=== PATIENT | female | born 1995 | race Caucasian/White ===

== ENCOUNTER 2016-03-16 04:54 | Inpatient (IN) ==
[2016-03-16] MEDS ORDERED: LEVOFLOXACIN INJ 750 MG in PREMIX 1 EACH IV STA (05:12)
[2016-03-16] MEDS ORDERED: ONDANSETRON 4 MG/2 ML VIAL IV STA (05:12)
[2016-03-16] MEDS ORDERED: PANTOPRAZOLE 40 MG VIAL IV STA (05:12)
[2016-03-16] MEDS ORDERED: METOCLOPRAMIDE 10 MG/2 ML VIAL IV STA (05:12)
--- NOTE | 2016-03-16 05:18 | Emergency Department Note ---
Arrival - Arrival ED Nursing Triage Note: REPORTS EPIGASTRIC PAIN RADIATING TO RIGHT SHOULDER WITH NAUSEA Mode of Arrival: Ambulatory Limitations: No Limitations Source: Patient, Family - History of Present Illness Onset (ago): hour(s) (patient presents 24 hours post onset of symptoms) Consistency: constant Severity: severe Severity scale (1-10): 8 Quality: aching Date of Last Menstrual Period: 02/11/2016 <Qamar Tsai - Last Filed: 03/16/16 05:14> <Roverto Holland - Last Filed: 03/16/16 11:22> - Arrival Chief Complaint: Abdominal / Flank Pain Stated Complaint: severe abdominal pain that goes up right side into Time Seen by Provider: 03/16/16 05:12 - History of Present Illness HPI Narrative: This 20-year-old white female seen March 14 in the ER presents once again with complaints of right upper quadrant pain radiating to the shoulder associated with nausea and vomiting. Patient states she has a history of gallstones which was documented on ultrasound on her last visit. Notable on the ultrasound here on the third was the absence of any evidence of active cholecystitis in association with her gallbladder disease. The patient states she was told to follow-up with a local surgeon whose office told her they could not see her without a primary care referral. Unfortunately the patient does not have a primary care physician and she returns here for persistence of symptoms. She states she was given no prescriptions although the record reports otherwise. Currently she complains of severe pain but is otherwise in no acute distress ( Qamar Tsai) Patient is 4 weeks . She was seen in the emergency department last night and underwent a gallbladder ultrasound which revealed cholelithiasis but no evidence of cholecystitis. No thickening of the gallbladder wall or pericholecystic fluid. (Roverto Holland) Allergies/Adverse Reactions: Allergies Allergy/AdvReac Type Severity Reaction Status Date / Time No Known Allergies Allergy Verified 03/14/16 20:20 Home Medications: Home Medications Medication Instructions Recorded Confirmed Type No Known Home Medications [No 03/16/16 03/16/16 History Known Home Medications] Review of System - Review of System 12 point system: reviewed and no additional remarkable complaints except as stated - Review of System Constitutional: Present: as per HPI Gastrointestinal: Present: as per HPI <Qamar Tsai - Last Filed: 03/16/16 05:14> Medical,Surgical,& Family Hx - Medical History Endocrine: History of: Thyroid Disorder Gastrointestinal: History of: GI Problems (gallstones) - Surgical History HEENT Surgeries: Surgical HX of: Tonsilectomy & Adenoidectomy - Social History Smoking Status: Never smoker Frequency of Alcohol Use: None Type of Drug Use: None <Qamar Tsai - Last Filed: 03/16/16 05:14> Exam <Qamar Tsai - Last Filed: 03/16/16 05:14> <Roverto Holland - Last Filed: 03/16/16 11:22> Physical Examination: GENERAL: Morbidly obese white female clutching an emesis bag in one hand with holding her abdomen with the other. HEENT: Normocephalic. No trauma. Moist mucous membranes. EOMI. PERRLA. NECK: Supple. No adenopathy. CARDIAC: Regular. No murmurs. Heart rate 95 CHEST: Clear to auscultation. No respiratory distress. O2 sat 98% ABDOMEN: Soft. Tender right upper quadrant with hypoactive bowel sounds. EXTREMITIES: No trauma. Normal ROM. No pedal edema. SKIN: No diaphoresis. No rash. NEURO: Alert. Physiologic exam No focal deficits. (Qamar Tsai) Vital Signs: Vital Signs Temperature 98.3 F 03/16/16 04:57 Pulse Rate 83 03/16/16 06:10 Respiratory Rate 19 03/16/16 06:10 Blood Pressure 143/90 03/16/16 06:10 O2 Sat by Pulse Oximetry 95 03/16/16 06:10 (Qamar Tsai) (Roverto Holland) Course <Qamar Tsai - Last Filed: 03/16/16 05:14> - Consultations Time: 07:00 Time: 07:53 Time: 11:21 <Roverto Holland - Last Filed: 03/16/16 11:22> Course Narrative: Care assumed from Dr. Tsai at 6 AM. (Roverto Holland) - Consultations Consultation #1: Discussed with Dr. alvarado. He will see the patient in the emergency department. (Roverto Holland) Consultation #2: Discussed with hospitalist. Patient will need to be admitted for evaluation of transaminitis which is rapidly progressing. (Roverto Holland) Consultation #3: Have discussed with Dr. Burciaga. The patient does not have HELLP syndrome. Patient needs to be admitted to medicine. Dr. Burciaga will be happy to consult on the patient. (Roverto Holland) Additional Consultation(s): Discussed with medicine once again. The patient will be admitted to their service. The time is 1125. (Roverto Holland) Results <Qamar Tsai - Last Filed: 03/16/16 05:14> - Labs CBC & BMP: 03/16/16 05:41 03/16/16 05:41 Lab Results: I have reviewed the patients labs <Roverto Holland - Last Filed: 03/16/16 11:22> - Labs Labs: Laboratory Tests 03/16/16 05:41 Sodium 145 Potassium 4.1 Chloride 108 H Carbon Dioxide 26 Anion Gap 15.1 H BUN 12 Creatinine 0.80 Glucose 101 AST 734 H ALT 526 H Alkaline Phosphatase 427 H Total Protein 6.7 Albumin 3.2 L Globulin 3.5 Albumin/Globulin Ratio 0.9 L (Roverto Holland) Disposition <Qamar Tsai - Last Filed: 03/16/16 05:14> Case discussed with: patient, patient's family Time of Disposition: 07:24 <Roverto Holland - Last Filed: 03/16/16 11:22> Clinical Impression: Transaminitis, Right upper quadrant abdominal pain, Cholelithiasis Disposition: Still a Patient Condition: Stable
[2016-03-16] MEDS ORDERED: ONDANSETRON 4 MG/2 ML VIAL ONE (05:37)
[2016-03-16] MEDS ORDERED: METOCLOPRAMIDE 10 MG/2 ML VIAL ONE (05:37)
[2016-03-16] MEDS ORDERED: LEVOFLOXACIN INJ 150 ML IV ONE (05:37)
[2016-03-16] MEDS ORDERED: PANTOPRAZOLE 40 MG VIAL IV ONE (05:37)
[2016-03-16] MEDS ORDERED: HYDROmorphone 2 MG/1 ML VIAL ONE ×2 (06:12→08:54)
[2016-03-16 06:17] LABS: Basophils % 0.6 % (0.0-0.8); Eosinophils # 0.1 10*3/uL (0.0-0.87); Hematocrit 35.2 VOL% (35.7-47.0); Hemoglobin 10.6 GM/DL (12.0-16.0); Immature Granulocytes % 0.3 %; Immature Granulocytes Absolute 0.02 #; Lymphocytes # 1.4 10*3/uL (1.4-4.0); Lymphocytes % 19.7 % (21.3-54.2); Mean Corpuscular HGB Conc 30.1 GM/DL (32-36); Mean Corpuscular Hemoglobin 23 PG (27-34); Mean Corpuscular Volume 75.5 FL (87-102); Mean Platelet Volume 10.2 FL (9.6-12.0); Monocytes # 0.5 10*3/uL (0.11-0.8); Monocytes % 7.7 % (1.7-12.7); Neutrophils # 4.8 10*3/uL (1.4-7.4); Neutrophils % 69.7 % (38.7-73.9); Platelet Count 276 10*3/uL (130-400); Red Blood Count 4.66 10*6/uL (3.8-5.5); Red Cell Distribution Width 16.4 % (9.3-17.3); White Blood Count 6.8 10*3/uL (4.5-13.71)
[2016-03-16] MEDS ORDERED: HYDROmorphone 2 MG/1 ML VIAL IV STA ×2 (06:20→09:15)
[2016-03-16 06:36] LABS: Albumin 3.2 G/DL (3.4-5.0); Bilirubin,Total 0.8 MG/DL (0.2-1.0); Calcium 8.7 MG/DL (8.5-10.1); Osmolality,Calculated 287.7 MOS/KG (273-304); Potassium 4.1 MMOL/L (3.5-5.1); Total Protein 6.7 G/DL (6.4-8.3)
--- NOTE | 2016-03-16 07:45 | General Surgery Consult Note ---
Assessment and Plan (1) Right upper quadrant abdominal pain Status: Acute Assessment and plan: This patient does have gallstones which sounds symptomatic but I believe she needs workup for her severe transaminitis that has worsened in the past 2 days. Hepatitis panel has been ordered. Certainly could be related to transaminitis although this is a little bit late for this. Regardless, with the amount of inflammation in her liver, I'll recommend holding off on any gallbladder surgery until this resolves and the underlying etiology of it comes to light. It is possible that it could be due from irritation from her gallbladder but with lack of signs of secondary cholecystitis on the ultrasound , normal WBC, and normal bilirubin I think that there is a real possibility of a second process going on her liver. I did recommend to her that she have her gallbladder removed electively but would like to wait for her remaining liver workup and transaminitis to improve. Current Visit: Yes History of Present Illness Chief complaint: abdominal pain with nausea and vomiting History of present illness: Ms. Carter is a 20 year old female who is one month from a spontaneous vaginal delivery and has been experiencing worsening right upper quadrant pain with nausea and vomiting since her delivery but is been worse and more persistent over the past week. She is here on March 14 and had a workup which showed a leukocytosis of 17,000 and a gallbladder ultrasound demonstrated stones but no wall thickening or pericholecystic fluid. She also had no bile duct dilation on the ultrasound. She was discharged home from the ER on the but came back today with persistent symptoms. Her lab work today demonstrates a premarked transaminitis with AST of over 700. Her bilirubin was normal. Her alkaline phosphatase is mildly elevated. She's had no abdominal surgeries in the past. Home Medications Medication Instructions Recorded Confirmed Type Ondansetron Odt Tab [Zofran Odt] 4 mg PO Q6H #15 tablet 03/14/16 Rx Pantoprazole Tab [Protonix Tab] 40 mg PO DAILY #14 tablet 03/14/16 Rx traMADol TAB [Ultram] 50 mg PO Q6H PRN #20 tablet 03/14/16 Rx Allergies Allergy/AdvReac Type Severity Reaction Status Date / Time No Known Allergies Allergy Verified 03/14/16 20:20 Medical,Surgical,& Family Hx - Medical History Endocrine: History of: Thyroid Disorder Gastrointestinal: History of: GI Problems (gallstones) - Surgical History HEENT Surgeries: Surgical HX of: Tonsilectomy & Adenoidectomy - Social History Smoking Status: Never smoker Frequency of Alcohol Use: None Type of Drug Use: None - Constitutional Constitutional: Present: as per HPI - EENT Nose, mouth and throat: Present: as per HPI - Cardiovascular Cardiovascular: Present: as per HPI - Respiratory Respiratory: Present: as per HPI - Gastrointestinal Gastrointestinal: Present: as per HPI, abdominal pain - Genitourinary Genitourinary: Present: as per HPI - Musculoskeletal Musculoskeletal: Present: as per HPI - Neurological Neurological: Present: as per HPI - Endocrine Endocrine: Present: as per HPI Hematologic/Lymphatic: Present: as per HPI Exam - Constitutional Vitals: Period Temp Pulse Resp BP Sys/Cole Pulse Ox Last 24 Hr 98.3 F 83-95 19-22 143-169/90-113 95-98 General appearance: no acute distress, morbidly obese - Head Head exam: Present: normal inspection, normocephalic - Eye Eye exam: Present: EOMI. Absent: scleral icterus Pupils: Present: RONEN - ENT ENT exam: Present: normal exam Mouth exam: Present: normal external inspection, normal voice - Neck Neck exam: Present: normal inspection, trachea midline - Respiratory Respiratory exam: Present: clear to auscultation bilaterally. Absent: accessory muscle use, chest wall tenderness - Cardiovascular Cardiovascular exam: Present: RRR. Absent: systolic murmur, tachycardia - GI/Abdominal GI/Abdominal exam: Present: normal bowel sounds, Green's sign, tenderness, soft. Absent: ascites, distended, rebound - Extremities Exam Extremities exam: Present: normal inspection, normal capillary refill - Back Exam Back exam: Present: normal inspection - Neurological Exam Neurological exam: Present: alert, oriented X3 Speech: Present: normal - Skin Skin exam: Present: normal color, warm Results - Labs CBC & BMP: 03/16/16 05:41 03/16/16 05:41 - Diagnostic Findings Procedure: Ultrasound: report reviewed by me Specialty Discharge - Follow Up or Referrals - Discharge Medications No Action Ondansetron Odt Tab [Zofran Odt] 4 mg PO Q6H #15 tablet Pantoprazole Tab [Protonix Tab] 40 mg PO DAILY #14 tablet traMADol TAB [Ultram] 50 mg PO Q6H PRN #20 tablet PRN Reason: Abdominal Pain
[2016-03-16 08:45] LABS: Hepatitis A Ab IgM Result Negative (Negative); Hepatitis B Core IgM Quant < 0.05 Index; Hepatitis B Core IgM Result Negative (Negative); Hepatitis B Surface Ag Quant < 0.10 Index; Hepatitis B Surface Ag Result Negative (Negative); Hepatitis C Virus Ab Quant 0.04 Index; Hepatitis C Virus Ab Result Negative (Negative)
[2016-03-16 09:19] LABS: PT Patient Result 10.1 SECS; Partial Thromboplastin Time 25.1 SECS (0-40)
[2016-03-16 10:32] LABS: Apearance,Urine CLOUDY (Clear); Bacteria,Urine Occasional /HPF (Few); Bilirubin,Urine Small mg/dL (Negative); Blood, Urine Negative (Negative); Glucose,Urine (UA) Negative (Negative); Ketones,Urine Negative (Negative); Mucus,Urine Many /LPF (Occasional); Nitrite,Urine Negative (Negative); Protein,Urine 30 MG/DL; RBC,Urine 2 /HPF (0-4); Squamous Epithelial Cell,Urine Moderate /HPF (0-10); Urine Color Amber (Yellow); Urine Specific Gravity 1.031 (1.001-1.035); WBC,Urine 5 /HPF (0-6)
[2016-03-16] MEDS ORDERED: ACETAMINOPHEN 325 MG TABLET PO PRN (11:44)
--- NOTE | 2016-03-16 12:22 | Hospitalist History & Physical ---
<Paula Galindo - Last Filed: 03/16/16 12:10> Assessment and Plan - Time spent with patient Time spent with patient: Greater than 30 minutes (due to assessment, plan and documentation.) (1) Cholelithiasis Status: Acute Assessment and plan: Gi consultation PRN pain medications clear liquid diet VTE prophylaxis abdominal ultrasound labs in AM Current Visit: Yes (2) Transaminitis Status: Acute Assessment and plan: GI has been consulted Lipase in Am. Current Visit: Yes History of Present Illness Chief complaint: RUQ abd pain History of present illness: Ms. Carter is a 20 year old morbidly obese female who presented to the ED early yesterday morning for RUQ abdominal pain. An ultrasound was performed that showed "cholelithiasis without specific features to suggest acute cholecystitis ". At that time, her AST was 97, ALT 51. Today, she presented for worsening abdominal pain. Her AST was noted to be 734, ALT 427. She is 4 weeks out from having a healthy baby girl, vaginally delivered. Dr. Patel delivered, but for insurance purposes, is now being seen by Dr. Burciaga. She is not diabetic, and does not have a history of HTN, however, she did say that she had some issues with her blood pressure during her . She complains of abdominal pain RUQ that radiates to her right shoulder. She states that at times, the pain "takes her breath away". Hepatitis panel is negative. Dr. Summers has already seen in the ED for surgical consultation. He feels that is possibly be related to transaminitis although he felt it was a little late in the timeline for that. Denies any past surgical history other than tonsilectomy and adenoidectomy. Dr. Zapata has spoken with Dr. Burciaga regarding Ms. Carter's presentation. We will admit and consult Dr. Lopez with GI, keep on a clear liquid diet. Acetominophen level was ordered and was 3.3. A urine test has also been ordered, UDS, magnesium and salicylate, along with blood cultures. CBC, lipase in Am. She will be on NS @ 125 cc/hr, and was previously given levaquin in the ED. She is agreeable to this plan of care and we will continue to follow along with GI. Further plan and addendum to follow by Dr. Char Zapata. Home Medications Medication Instructions Recorded Confirmed Type No Known Home Medications [No 03/16/16 03/16/16 History Known Home Medications] Allergies Allergy/AdvReac Type Severity Reaction Status Date / Time No Known Allergies Allergy Verified 03/14/16 20:20 Medical,Surgical,& Family Hx - Medical History Endocrine: History of: Thyroid Disorder Gastrointestinal: History of: GI Problems (gallstones) - Surgical History HEENT Surgeries: Surgical HX of: Tonsilectomy & Adenoidectomy - Social History Smoking Status: Never smoker Frequency of Alcohol Use: None Type of Drug Use: None Marital Status: Lives With:: Spouse Functional capacity: independent ambulation - Constitutional Constitutional: Absent: chills, fever(s), weakness - EENT Eyes: Absent: blurry vision, diplopia Ears: Absent: decreased hearing, tinnitus Nose, mouth and throat: Absent: dysphagia, headache(s) - Cardiovascular Cardiovascular: Present: chest pain at rest (that radiates from her mid- abdomen. ). Absent: edema - Respiratory Respiratory: Absent: cough, hemoptysis - Gastrointestinal Gastrointestinal: Present: abdominal pain, nausea, vomiting. Absent: melena - Genitourinary Genitourinary: Absent: dysuria, flank pain, hematuria - Musculoskeletal Musculoskeletal: Absent: arthralgias, joint swelling - Neurological Neurological: Absent: confusion, dizziness - Psychiatric Psychiatric: Absent: anxiety, confusion, depression - Endocrine Endocrine: Absent: cold intolerance, heat intolerance - Hematologic/Lymphatic Hematologic/Lymphatic: Absent: easy bleeding, easy bruising Exam - Constitutional Vitals: Period Temp Pulse Resp BP Sys/Cole Pulse Ox Last 24 Hr 98.3 F 83-95 19-22 143-169/90-113 95-98 General appearance: no acute distress, morbidly obese - Head Head exam: Present: normal inspection, normocephalic - Eye Eye exam: Present: EOMI. Absent: scleral icterus Pupils: Present: RONEN, normal accommodation - ENT ENT exam: Present: normal exam, normal oropharynx - Neck Neck exam: Present: normal inspection. Absent: lymphadenopathy - Respiratory Respiratory exam: Present: clear to auscultation bilaterally. Absent: accessory muscle use - Cardiovascular Cardiovascular exam: Present: regular rate and rhythm. Absent: carotid bruit - GI/Abdominal GI/Abdominal exam: Present: normal bowel sounds. Absent: tenderness - Extremities Exam Extremities exam: Present: normal inspection. Absent: edema - Back Exam Back exam: Present: normal inspection. Absent: muscle spasm - Neurological Exam Neurological exam: Present: alert, oriented X3 - Psychiatric Psychiatric exam: Present: normal affect, normal mood - Skin Skin exam: Present: normal color, warm, dry, intact Results - Labs CBC & BMP: 03/16/16 05:41 03/16/16 05:41 Lab Results: I have reviewed the past 24 hour labs <BennyChar Declan - Last Filed: 03/16/16 14:11> Assessment and Plan (1) Cholelithiasis Status: Acute Assessment and plan: ercp in am Current Visit: Yes (2) Right upper quadrant abdominal pain Status: Acute Assessment and plan: Positive green sign, abx, ercp in am Current Visit: Yes (3) Transaminitis Status: Acute Assessment and plan: ercp in am, still suspcious that GB needs to be removed. Current Visit: Yes (4) Headache Status: Acute Assessment and plan: blood patch, evaluation for sleep apnea Current Visit: Yes (5) UTI (urinary tract infection) Status: Acute Assessment and plan: unsyn IV Current Visit: Yes History of Present Illness History of present illness: Patient seen and examined. Hospital course reviewed and edited. Spoke with Dr. Lopez regarding his plan. He plans to do an ERCP tomorrow. Repeat gallbladder ultrasound showed extensive gallstones. And she was extremely tender consistent with Green sign. Patient does have evidence of fatty liver. She also spoke of having headaches ever since she had her eipdural. I will call anesthesia to do a blood patch. I will also have Dr. Balderas see her as I believe she has sleep apnea. Urine drug screen does show marijuana and opiates. Urine test is negative. Medical,Surgical,& Family Hx - Surgical History Additional Surgical History: vaginal delivery - Family History Family History: Reports;: Family Diabetes Denies;: Family Heart Disease - EENT Nose, mouth and throat: Absent: sore throat - Cardiovascular Cardiovascular: Absent: dyspnea, dyspnea on exertion - Respiratory Respiratory: Absent: dyspnea, dyspnea on exertion - Gastrointestinal Gastrointestinal: Absent: constipation, diarrhea - Neurological Neurological: Present: headache(s) Exam - Constitutional Vitals: Period Temp Pulse Resp BP Sys/Cole Pulse Ox Last 24 Hr 97.5 F 71-89 17-20 106-115/65-69 95-98 - Neck Neck exam: Absent: thyromegaly - Cardiovascular Cardiovascular exam: Absent: systolic murmur - GI/Abdominal GI/Abdominal exam: Present: tenderness (RUQ) - Neurological Exam Neurological exam: Present: CN II-XII intact, reflexes normal. Absent: motor sensory deficit Results - Labs CBC & BMP: 03/16/16 05:41 03/16/16 05:41 - Diagnostic Findings Procedure: Ultrasound: report reviewed by me (extensive stones, fatty liver)
[2016-03-16 12:33] LABS: Barbiturates Screen,Urine Negative (Negative); Benzodiazepines Screen,Urine Negative (Negative); Cannabinoid Screen,Urine Positive (Negative); Opiate Screen,Urine Positive (Negative); Phencyclidine Screen,Urine Negative (Negative)
--- NOTE | 2016-03-16 13:41 | Gastrointestinal Consult Note ---
<Shawanda Manzano - Last Filed: 03/16/16 13:23> Assessment and Plan (1) Transaminitis Status: Acute Assessment and plan: 03/16-Findings of elevated LFTs that were essentially stable two days prior with continued RUQ pain and N/V following ingestion of meals. Normal , 4 weeks with no prior history. Obtain abd US with portal vein dopplers , MARCELA. Plan for ERCP tomorrow due to findings of gallstones on US. Plan and addendum to follow by DR Lopez. Current Visit: Yes (2) Right upper quadrant abdominal pain Status: Acute Assessment and plan: 03/16-Onset of RUQ with N/V, initially starting during and worsening over last several weeks since delivery. Findings on US of gallstones, normal CBD two days ago in ER. LFTs now elevated and repeat US ordered with portal vein dopplers. Plan for ERCP tomorrow to further evaluate. Plan and addendum to follow by DR loepz. Current Visit: Yes History of Present Illness Chief complaint: Abd pain, N/V History of present illness: Ms. Carter is a 20 year old female who presented to the ER today with epigastric pain, nausea and vomiting. Pt is 4 weeks following a normal vaginal delivery and a reported uncomplicated . She states while she was she had the epigastric/RUQ abdominal pain with nausea and was told it was "probably my gallbladder". She states since delivery, she has continued to have this pain however it has become more severe the last several days. She presented to the ER on 03/14 with this pain and underwent an US which at that time was noted to have gallstones, with normal CBD and no cholecystits. Her AST was mildly elevated at 97 and alk phos 244 with remained of LFT unremarkable. She was discharged home with appt to see Dr Combs. Pt presented back to the ER today with the same symptoms. She states that the pain has become more frequent and severe and occurs every time she eats. She has had nausea and vomiting as well. Denies any hematemesis or coffee ground emesis. She denies any fever or chills. She now presents with elevated LFT today with AST 734, ALT 526, Alk phose 427. Hepatitis panel is negative. WBC 6.8. Tylenol level normal, positive for THC on drug screen. Home Medications Medication Instructions Recorded Confirmed Type No Known Home Medications [No 03/16/16 03/16/16 History Known Home Medications] Allergies Allergy/AdvReac Type Severity Reaction Status Date / Time No Known Allergies Allergy Verified 03/14/16 20:20 Medical,Surgical,& Family Hx - Medical History Endocrine: History of: Thyroid Disorder Gastrointestinal: History of: GI Problems (gallstones) - Surgical History HEENT Surgeries: Surgical HX of: Tonsilectomy & Adenoidectomy - Social History Smoking Status: Never smoker Frequency of Alcohol Use: None Type of Drug Use: None 12 point system: reviewed and no additional remarkable complaints except as stated - Constitutional Constitutional: Present: as per HPI - EENT Eyes: Present: as per HPI Ears: Present: as per HPI Nose, mouth and throat: Present: as per HPI - Cardiovascular Cardiovascular: Present: as per HPI - Respiratory Respiratory: Present: as per HPI - Gastrointestinal Gastrointestinal: Present: as per HPI, abdominal pain, nausea, vomiting - Genitourinary Genitourinary: Present: as per HPI - Musculoskeletal Musculoskeletal: Present: as per HPI - Neurological Neurological: Present: as per HPI - Psychiatric Psychiatric: Present: as per HPI - Endocrine Endocrine: Present: as per HPI - Hematologic/Lymphatic Hematologic/Lymphatic: Present: as per HPI Exam - Constitutional Vitals: Period Temp Pulse Resp BP Sys/Cole Pulse Ox Last 24 Hr 97.5 F 71-89 17-20 106-115/65-69 95-98 General appearance: no acute distress, over weight - Head Head exam: Present: normal inspection, normocephalic - Eye Eye exam: Present: other (lids and conjunctiva unremarkable). Absent: scleral icterus - ENT ENT exam: Present: normal exam - Neck Neck exam: Present: normal inspection - Respiratory Respiratory exam: Present: clear to auscultation bilaterally. Absent: rales, rhonchi, wheezes - Cardiovascular Cardiovascular exam: Present: regular rate and rhythm. Absent: diastolic murmur , JVD, systolic murmur - GI/Abdominal GI/Abdominal exam: Present: normal bowel sounds, tenderness, soft. Absent: ascites, distended, mass, organomegaly - Extremities Exam Extremities exam: Present: normal inspection, full ROM - Back Exam Back exam: Present: normal inspection - Neurological Exam Neurological exam: Present: alert, oriented X3 - Psychiatric Psychiatric exam: Present: normal affect, normal mood - Skin Skin exam: Present: normal color, warm, dry Results - Labs CBC & BMP: 03/16/16 05:41 03/16/16 05:41 Lab Results: I have reviewed the past 24 hour labs - Diagnostic Findings Procedure: Ultrasound: report reviewed by me Specialty Discharge - Follow Up or Referrals - Discharge Medications No Action No Known Home Medications [No Known Home Medications] <Jose Lopez - Last Filed: 03/16/16 18:02> History of Present Illness History of present illness: Ms. Carter is a 20 year old female Exam - Constitutional Vitals: Period Temp Pulse Resp BP Sys/Cole Pulse Ox Last 24 Hr 96.9 F-97.5 F 71-89 17-20 106-128/58-69 95-98 Results - Labs CBC & BMP: 03/16/16 05:41 03/16/16 05:41
[2016-03-16] MEDS ORDERED: PNEUMOCOCCAL VACCINE (23 VALENT) 0.5 ML VIAL IM ONE (14:00)
[2016-03-16] MEDS: SODIUM CHLORIDE 0.45% 1,000 ML IV SCH ×2 (14:09→23:17)
[2016-03-16] MEDS: ONDANSETRON 4 MG/2 ML VIAL IV PRN (14:10)
[2016-03-16] MEDS: MORPHINE 2 MG/1 ML SYRINGE IV PRN ×2 (14:11→17:49)
[2016-03-16] MEDS: AMPICILLIN/SULBACTAM 3,000 MG in SODIUM CHLORIDE 0.9% 100 ML IV SCH ×2 (15:46→21:27)
--- NOTE | 2016-03-16 18:57 | Ultrasound Report ---
US abd doppler limited Indication: Elevated liver function studies. Comparison: None. Technique: Using transcutaneous probe, ultrasound imaging of the abdomen was performed. Ultrasound images were captured and stored. Interrogated structures include the liver, gallbladder, spleen, pancreas, right kidney, left kidney, aorta, and inferior vena cava. Additionally, Doppler study is performed with capture and and stored images of the portal vein, hepatic vein, and hepatic artery. Findings: Visualized portion of the pancreatic head as well as the small portion of the pancreatic body visualized are unremarkable. Images submitted of the liver demonstrate no evidence of focal hepatic mass. The right hepatic lobe as measured in the mid hepatic line is approximate 17 cm in craniocaudal dimension. Echotexture the liver is isoechoic to the right renal cortex. Interrogation of the hepatic and portal veins demonstrate presence of color flow as well as the correct direction of spectral flow within the hepatic veins sampled. Hepatic veins demonstrate a [id number] degree of cardiac phasicity. The portal vein demonstrates minimal variability in antegrade hepatofugal flow. There is minimal phasicity of waveform noted. Velocities within the portal vein are approximately 16-18 cm/s. Images of the hepatic artery demonstrate moderate spectral broadening with monophasic low resistance arterial waveform demonstrating a peak diastolic velocity of approximately 5 cm/s. Common bile duct is normal in size to minimally enlarged measuring 5.3 mm. The gallbladder demonstrates layering stones and/or sludge with evidence of borderline to minimal wall thickening. Gallbladder wall measures up to 3 mm. No pericholecystic fluid is present. Right kidney measures 11.7 cm in craniocaudal dimension. Aorta and inferior vena cava as well as images of the left kidney not included on study. Impression: 1. Hepatic artery demonstrates lower systems waveform. Resistive index was not calculated end systolic peaks are not well visualized on the provided spectral tracing. 2. Fairly normal appearance of hepatofugal flow is noted on spectral images obtained from the portal vein. 3. Hepatic veins demonstrate fairly normal pattern of phasicity. 4. Cholelithiasis is demonstrated. Additionally wall thickening is borderline. In the correct clinical scenario this could reflect evidence of acute cholecystitis. 5. Borderline to minimal enlargement of common bile duct is present of uncertain significance. 03/16/2016 6:39 PM PROCEDURE INTERPRETED AT [facility] DEPARTMENT OF RADIOLOGY Final Report Signed by: Dr. Claudy Killian
[2016-03-17] MEDS: AMPICILLIN/SULBACTAM 3,000 MG in SODIUM CHLORIDE 0.9% 100 ML IV SCH ×4 (02:30→21:38)
[2016-03-17 07:13] LABS: PT Patient Result 10.4 SECS
[2016-03-17 07:29] LABS: Albumin 2.7 G/DL (3.4-5.0); Bilirubin,Total 0.7 MG/DL (0.2-1.0); Calcium 8.2 MG/DL (8.5-10.1); Osmolality,Calculated 282.8 MOS/KG (273-304); Potassium 4.3 MMOL/L (3.5-5.1); Total Protein 5.7 G/DL (6.4-8.3)
[2016-03-17 07:40] LABS: Basophils % 0.4 % (0.0-0.8); Eosinophils # 0.3 10*3/uL (0.0-0.87); Eosinophils % 4.4 % (0.00-10.9); Hematocrit 35.8 VOL% (35.7-47.0); Hemoglobin 10.7 GM/DL (12.0-16.0); Immature Granulocytes % 0.3 %; Immature Granulocytes Absolute 0.02 #; Lymphocytes # 2.5 10*3/uL (1.4-4.0); Lymphocytes % 34.2 % (21.3-54.2); Mean Corpuscular HGB Conc 29.9 GM/DL (32-36); Mean Corpuscular Hemoglobin 23 PG (27-34); Mean Corpuscular Volume 76.2 FL (87-102); Monocytes # 0.4 10*3/uL (0.11-0.8); Monocytes % 5.3 % (1.7-12.7); Neutrophils # 4.1 10*3/uL (1.4-7.4); Neutrophils % 55.4 % (38.7-73.9); Platelet Count 248 10*3/uL (130-400); Red Cell Distribution Width 16.4 % (9.3-17.3); White Blood Count 7.3 10*3/uL (4.5-13.71)
[2016-03-17] MEDS ORDERED: cefTRIAXone 1,000 MG in SODIUM CHLORIDE 0.9% 100 ML IV SCH (09:00)
--- NOTE | 2016-03-17 10:53 | General Surgery Progress Note ---
Assessment and Plan (1) Right upper quadrant abdominal pain Status: Acute Assessment and plan: The patient has been seen in consultation by gastroenterology with plans for ERCP today initially written in the notes. She does feel little bit better today. I will await the completion of her workup and see what this all reveals but with her transaminitis coming down so quickly certainly is possible that this could've BEEN irritation due to cholecystitis. In addition, she did have some borderline wall thickness on her duplex ultrasound of her liver. I'll continue to follow her. I will tentatively plan on doing surgery on Sunday if everything else is in order. Current Visit: Yes Subjective Patient reports: Present: no new complaints, feels better, still having pain, pain is less, afebrile. Absent: nausea, vomiting Narrative: Duplex ultrasound of the liver now demonstrates some wall thickening in the gallbladder and a borderline common bile duct. Her transaminitis is resolving and her bilirubin is normal. She still has an elevated alkaline phosphatase. Exam - Constitutional Vitals: Period Temp Pulse Resp BP Sys/Cole Pulse Ox Last 24 Hr 96.3 F-98.5 F 67-98 17-20 101-149/55-86 95-98 General appearance: no acute distress, morbidly obese - Head Head exam: Present: normal inspection, normocephalic - Eye Eye exam: Present: EOMI Pupils: Present: RONEN - ENT ENT exam: Present: normal exam Mouth exam: Present: normal external inspection, normal voice - Neck Neck exam: Present: normal inspection, trachea midline - Respiratory Respiratory exam: Present: clear to auscultation bilaterally. Absent: accessory muscle use, chest wall tenderness - Cardiovascular Cardiovascular exam: Present: RRR. Absent: systolic murmur, tachycardia - GI/Abdominal GI/Abdominal exam: Present: tenderness, soft. Absent: Green's sign, rebound - Extremities Exam Extremities exam: Present: normal inspection, normal capillary refill - Back Exam Back exam: Present: normal inspection - Neurological Exam Neurological exam: Present: alert, oriented X3 Speech: Present: normal - Skin Skin exam: Present: normal color, warm Results - Labs CBC & BMP: 03/17/16 06:12 03/17/16 06:12 - Diagnostic Findings Procedure: Ultrasound: report reviewed by me Specialty Discharge - Follow Up or Referrals - Discharge Medications No Action No Known Home Medications [No Known Home Medications]
--- NOTE | 2016-03-17 11:42 | Hospitalist Progress Note ---
Assessment and Plan (1) Cholelithiasis Status: Acute Assessment and plan: ercp today and lap stella on Sunday. Current Visit: Yes (2) Transaminitis Status: Acute Assessment and plan: Liver enzymes are better today. Current Visit: Yes (3) Headache Status: Acute Assessment and plan: blood patch, evaluation for sleep apnea Current Visit: Yes (4) UTI (urinary tract infection) Status: Acute Assessment and plan: unsyn IV Current Visit: Yes Hospitalist: Subjective Interval history: Patient going for an ERCP today. Dr. Summers will be taken out her gallbladder on Sunday Exam - Constitutional Exam: Heart Rate-[RRR] Lungs-[CTAB] GI-[+bs soft, tender RUQ] Ext-[no edema] neuro alert and oriented times 3, motor 5/5 psych normal mood and affect Results - Labs CBC & BMP: 03/17/16 06:12 03/17/16 06:12 Lab Results: I have reviewed the past 24 hour labs Labs: Blood cultures 2 negative - Diagnostic Findings Procedure: Ultrasound: report reviewed by me (Pao lithiasis demonstrated and minimal enlargement of the common bile duct is present) Specialty Discharge - Follow Up or Referrals - Discharge Medications No Action No Known Home Medications [No Known Home Medications]
[2016-03-17] MEDS ORDERED: fentaNYL 100 MCG/2 ML VIAL ONE ×2 (12:10→12:31)
[2016-03-17] MEDS ORDERED: MIDAZOLAM 2 MG/2 ML VIAL ONE (12:10)
--- NOTE | 2016-03-17 12:42 | History and Physical Update ---
History and Physical Update - Physical Exam Mental Status: alert and oriented Heart: regular rate and rhythm Lung: clear to auscultation Abdomen: within normal limits Vitals: within normal limits
--- NOTE | 2016-03-17 12:45 | Operative Note ---
Date of procedure: 03/17/16 Pre-op diagnosis: suspected choledocholithiasis Procedure: Endoscopic retrograde cholangiopancreatography with sphincterotomy and balloon stone extraction 20-year-old female with known cholelithiasis now with suspected choledocholithiasis with abnormal liver test dilated biliary tree for ERCP to further evaluate. Informed percent was obtained from the patient. She was sedated with general anesthesia per anesthesia protocol. Patient was placed in the prone position the Olympus duodenal scope was inserted under direct vision through the normal-appearing esophagus stomach pylorus to the level of a normal-appearing ampulla which does have a little bit of edematous characteristics suggestive of possible stone passage. The biliary tree was cannulated with a sphincterotome revealing a mildly dilated common bile duct common hepatic duct with question of refractory debris in the distal bile duct. Intrahepatic ducts appear normal. Cystic duct was patent and multiple cholelithiasis was identified. It was elected to proceed with sphincterotomy and subsequently an 8 mm sphincterotomy was performed without difficulty. A wire had been placed endoscopically and utilizing this the balloon catheter was advanced the level kat hepatis inflated 8 mm and brought in the duodenum. A small amount of sludge-type debris was noted to pass. Repeat balloon sweeping with 10 mm balloon revealed no residual stone fragments. Good hemostasis was noted. The procedure was terminated patient our procedure well she's discharge recovery in good condition. Postop diagnosis: #1 choledocholithiasis now status post successful sphincterotomy and balloon extraction #2 cholelithiasis will need cholecystectomy. #3 abnormal liver tests likely secondary to choledocholithiasis we'll continue to observe and expect these to improved. Her baseline liver test are unknown and certainly she is at high risk for some component of steatohepatitis Anesthesia: KURTIS Surgeon / Physician: Jose Lopez Estimated blood loss: none Specimens: none sent Condition: stable Disposition: post procedure unit Results - Labs CBC & BMP: 03/17/16 06:12 03/17/16 06:12 Discharge Plan - Discharge Medications No Action No Known Home Medications [No Known Home Medications] - Follow Up or Referral - Forms/Instructions
[2016-03-17] MEDS ORDERED: GLUCAGON 1 MG VIAL ONE (12:59)
--- NOTE | 2016-03-17 13:07 | Anesthesia ---
Anesthesia Post OP - Post Ansesthetic Evaluation Patient seen in post op: Yes Resp: within normal limits CV: within normal limits Mental: within normal limits Temp: within normal limits [id number]: within normal limits Nausea and Vomiting: within normal limits Pain: within normal limits
[2016-03-17] MEDS ORDERED: ONDANSETRON 4 MG/2 ML VIAL ONE (13:09)
[2016-03-17] MEDS: ONDANSETRON 4 MG/2 ML VIAL IV PRN (13:15)
--- NOTE | 2016-03-17 13:31 | Sleep Medicine Consult ---
Assessment and Plan (1) Unspecified sleep apnea Status: Acute Assessment and plan: Her history does not suggest high likelihood of sleep apnea and I do not think sleep apnea is contributing to her headaches. I think her headaches are more related to her state and if she is not had CT of the brain, I would recommend CT to be done. She has not had thyroid function studies done and I would also make sure that TSH is at least done to exclude hypothyroidism. It is certainly possible that just her epidural was contributing to her headaches but this seems to be quite a prolonged period of time to be contributing to this. Post epidural headaches usually resolve by 15 days without treatment. At this point I think is safe to hold off on further sleep evaluation but I will check back with her on Sunday and see how she's doing. Current Visit: Yes History of Present Illness Chief complaint: headache History of present illness: Ms. Carter is a 20 year old female status post recent delivery of baby about 1 month ago. She has had problems with a headache since 3 days after delivery. She had an epidural. Her headache lasts all day and is unremitting. She did not have her headache prior to her epidural or delivery of her baby. She does have a history of snoring but on discussion with her , she has no trouble with her breathing at all during her sleep. He is never her to stop breathing and does not describe her snoring as loud or disruptive. The patient states that she usually feels rested and had no issues with fatigue or sleepiness up until the delivery of her baby. She states that with her young child, she's having more problems with fatigue and sleepiness. She denies any issues with restlessness of her legs or leg jerks. Her denies that she kicks her jerks her legs during sleep. Her and her mother both deny any problems with daytime fatigue or sleepiness. She is being evaluated for upper abdominal pain, nausea, and abnormal LFTs. She is status post ERCP. Home Medications Medication Instructions Recorded Confirmed Type No Known Home Medications [No 03/16/16 03/16/16 History Known Home Medications] Allergies Allergy/AdvReac Type Severity Reaction Status Date / Time No Known Allergies Allergy Verified 03/14/16 20:20 Review of systems: Patient's weight is down to her prepregnancy weight. She has not had issues with swelling proceeding her or since. Exam (Pulmonay) H&P - Constitutional Vitals: Period Temp Pulse Resp BP Sys/Cole Pulse Ox Last 24 Hr 72-97 16-19 103-120/56-80 95-98 Exam: She is alert and responsive in no acute distress. Pupils equal round reactive to light and accommodation. Extraocular movements intact. Oropharynx with class II Mallampati exam. Neck is supple without adenopathy or thyromegaly. No supraclavicular adenopathy is noted. Chest with symmetrical breath sounds without focal wheezes rhonchi or rales. Cardiac exam reveals a regular rhythm without murmur or gallop. Abdomen soft, obese, without overt tenderness present. Extremities are without clubbing cyanosis or edema. Neurologically, grossly intact. She moves all extremities with good strength. 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, borderline issues.) Endocrine: History of: Thyroid Disorder Gastrointestinal: History of: GI Problems (gallstones) Reproductive: History of: Complication (1 miscarriage, hypothyroidism during ) - Surgical History Neurologic Surgeries: Patient denies: Neurologic Surgery HEENT Surgeries: Surgical HX of: Tonsilectomy & Adenoidectomy Abdominal Surgeries: Patient denies: Abdominal Surgery Reproductive Surgeries: Patient denies;: Genitourinary Surgery, Gynecologic Surgery - Family History Family History: Reports;: Family Cancer (maternal great grandparents), Family Diabetes, Family Hypertension (father, maternal grandfather and maternal aunt), Family Psychiatric Problems (brother-ADD, ADHD, seizures, maternal aunt with issues), Family Stroke (both maternal great grandparents) Denies;: Family Anesthesia Reaction, Family Heart Disease, Family Hematology , Additional Family History - Social History Smoking Status: Never smoker Frequency of Alcohol Use: None Type of Drug Use: None Results - Labs CBC & BMP: 03/17/16 06:12 03/17/16 06:12 Lab Results: I have reviewed the past 24 hour labs Specialty Discharge - Follow Up or Referrals - Discharge Medications No Action No Known Home Medications [No Known Home Medications]
[2016-03-17] MEDS: MORPHINE 2 MG/1 ML SYRINGE IV PRN ×2 (13:59→23:36)
--- NOTE | 2016-03-17 14:42 | Fluoroscopy Report ---
[place] ERCP w sphincterotomy Clinical Information: \S\elevated LFT, gallstones Total fluoroscopy time: 30SEC Operating physician: Moose Lopez Comparison: None Findings: Intraoperative fluoroscopy during ERCP was performed. No significant residual filling defects or abnormal focal stricture is visualized within the common bile duct. Multiple filling defects are noted within the gallbladder consistent with a history of cholelithiasis. Sphincterotomy was performed. Sweeping of the debris from the common bile duct was also reported. Impression: Intraoperative fluoroscopy as detailed above. PROCEDURE INTERPRETED AT [facility] DEPARTMENT OF RADIOLOGY Final Report Signed by: Ovidio Rosario
--- NOTE | 2016-03-17 16:21 | CT Report ---
History: Headache Date: 03/17/2016 Study: CT head without contrast Comparison exam: No previous similar study available Transaxial CT sections were obtained through the head without IV contrast. Total DLP measures 970.1 mGy*cm. The ventricles are midline in position without evidence of hydrocephalus. There is no mass or parenchymal hemorrhage. There is no gross CT evidence of acute cortical stroke. There is no extra-axial hematoma. The partially visualized paranasal sinuses and mastoid air cells are clear. There is no acute abnormality of the calvarium. Impression: No acute intracranial process PROCEDURE INTERPRETED AT [facility] [place] DEPARTMENT OF RADIOLOGY Final Report Signed by: Dr. Bethany Ruiz
[2016-03-18] MEDS: AMPICILLIN/SULBACTAM 3,000 MG in SODIUM CHLORIDE 0.9% 100 ML IV SCH ×3 (03:05→17:11)
[2016-03-18] MEDS: SODIUM CHLORIDE 0.45% 1,000 ML IV SCH ×3 (03:54→17:11)
--- NOTE | 2016-03-18 08:57 | Anesthesia ---
Anesthesia Procedures - Epidural Position: sitting position (Epidural Blood patch. Sitting position. Chloraprep. Skin wheal 1% lidocain. 18 Ga Tuohy needle. +KEKE to air. 10 ml blood drawn in sterile fashion by RN. 10 ml blood injected into epidural space. Tolerated well. Pt. had no sedation per her request.)
--- NOTE | 2016-03-18 08:59 | Anesthesia ---
Anesthesia Post OP - Post Ansesthetic Evaluation Patient seen in post op: Yes Resp: within normal limits CV: within normal limits Mental: within normal limits Temp: within normal limits [id number]: within normal limits Nausea and Vomiting: within normal limits Pain: within normal limits Patient seen at: date, time
--- NOTE | 2016-03-18 11:01 | Event Note ---
03/18/2016. Patient apparently has some gallbladder changes and docked to look is considering whether to do cholecystectomy. Stable at this time.
--- NOTE | 2016-03-18 14:06 | Gastrointestinal Progress Note ---
Assessment and Plan - Time spent with patient Time spent with patient: Greater than 30 minutes (1) Choledocholithiasis Status: Acute Current Visit: Yes (2) Other specified counseling Status: Acute Current Visit: Yes Exam (Progress Note) - Constitutional Vitals: Period Temp Pulse Resp BP Sys/Cole Pulse Ox Last 24 Hr 96.2 F-99.0 F 58-89 16-20 99-133/52-74 94-98 Results - Labs CBC & BMP: 03/17/16 06:12 03/17/16 06:12 Specialty Discharge - Follow Up or Referrals - Discharge Medications No Action No Known Home Medications [No Known Home Medications] Note Addendum: PLEASE NOTE -- automatic citation of patient information is unavoidable in this electronic note. I have made a reasonable effort to review the information cited , but it is not a part of my evaluation, impression, or recommendation unless specifically discussed in the dictated text that follows. As well, voice recognition software was used in the creation of this clinical note. Reasonable effort was made to identify and correct gross errors. Despite proofreading, errors in asphalt paving supervisor may be present, including nonsense verbiage at times. If you encounter such an error, please contact me at for discussion and correction. -- Jonnie Chief complaint: biliary disease Subjective: the patient is a 20-year-old female seen for follow-up of choledocholithiasis. The patient was admitted to days ago with elevated liver associated enzymes and evidence of cholecystitis. She underwent ERCP with sphincterotomy and bullying extraction of a choledocholith yesterday. She has started taking a diet and is tolerating that. Liver associated enzymes have trended down well. She reports continued abdominal pain but appears comfortable. Medications: Tylenol, Augmentin, Zofran, 1/2NS infusion, morphine Review of Symptoms: 12 point review of symptoms was negative except as noted above Physical examination: Vital Signs: Current vital signs reviewed. General Appearance: well-appearing. Not acutely ill. Head: Normocephalic. Eyes: no scleral icterus. No scleral injection. No conjunctival pallor. Oral Cavity: Odor of breath was normal. No drooling was observed. Lips showed no abnormalities. Lungs: Respiration rhythm and depth was normal. Cardiovascular: Heart rate and rhythm were normal. Abdomen: abdomen was not distended. Ascites was not discovered. Abdominal palpation revealed mild diffuse tenderness and no hepatosplenomegaly. Musculoskeletal System: musculoskeletal system was grossly normal. Neurological: level of consciousness was normal. Speech was normal. No coordination/cerebellum abnormalities were noted. Skin: Gen. appearance was normal. Color and pigmentation were normal. No skin lesions were appreciated. Laboratory: white blood count 7.3, hemoglobin 10.7, hematocrit 35.8, platelets 248, INR 1.0, PT 10.4, ALT 355, AST 207, total bilirubin 0.7, alkaline phosphatase 338, total protein 5.7, albumin 2.7 Radiology: reviewed with no pertinent changes noted. Impressions: 1. Choledocholithiasis -- the patient is status post sphincterotomy with clearance of the duct. I recommend continued monitoring of liver associated enzymes to normal. I agree with the tentative surgical plan for cholecystectomy during this admission. 2. Patient Counseling: Medical Management: Patient seen for greater than 30 minutes. Greater than 50% of this time was spent counseling regarding differential diagnosis, likely diagnosis,, diagnostic and therapeutic options, risks, benefits, and alternatives to procedures and medications, informed consent, and plan of care generally. Patient has expressed understanding and wishes to proceed. Recommendations: -- continue supportive care -- continue antibiotics -- monitor liver associated enzymes -- cholecystectomy during this admission -- we will continue to follow with you
[2016-03-18] MEDS: AMPICILLIN 500 MG CAPSULE PO SCH (20:52)
[2016-03-19] MEDS: MORPHINE 2 MG/1 ML SYRINGE IV PRN ×3 (00:56→18:32)
--- NOTE | 2016-03-19 08:09 | Event Note ---
03/19/2016 Patient without significant discomfort but continues to go out and smoke. Patient scheduled for cholecystectomy tomorrow and we will make her nothing by mouth after midnight.
--- NOTE | 2016-03-19 09:08 | Gastrointestinal Progress Note ---
Assessment and Plan (1) Choledocholithiasis Status: Acute Current Visit: Yes (2) Other specified counseling Status: Acute Current Visit: Yes Exam (Progress Note) - Constitutional Vitals: Period Temp Pulse Resp BP Sys/Cole Pulse Ox Last 24 Hr 97.2 F-98.0 F 77-96 16-20 114-138/55-83 94-97 Results - Labs CBC & BMP: 03/17/16 06:12 03/17/16 06:12 Specialty Discharge - Follow Up or Referrals - Discharge Medications No Action No Known Home Medications [No Known Home Medications] Note Addendum: I have reviewed this patient's record with tentative diagnoses as documented. I visited the patient's room and found that she was off the floor. I contacted the nursing staff who reports that she regularly leaves the floor to smoke. Please call with any further needs today. Dr. Lopez will resume GI care for this patient tomorrow.
[2016-03-19] MEDS: AMPICILLIN 500 MG CAPSULE PO SCH ×4 (09:33→22:30)
[2016-03-20] MEDS ORDERED: LIDOCAINE 1%/EPI INJ 20 ML VIAL ONE (06:45)
[2016-03-20] MEDS ORDERED: TISSUE ADHESIVE 1 EACH APPLICATOR TOP ONE (06:45)
[2016-03-20] MEDS ORDERED: LIDOCAINE 100 MG/5 ML SYRINGE ONE (07:06)
[2016-03-20] MEDS ORDERED: PROPOFOL 200 MG/20 ML VIAL IV ONE (07:06)
[2016-03-20] MEDS ORDERED: ONDANSETRON 4 MG/2 ML VIAL ONE ×2 (07:06→08:48)
[2016-03-20] MEDS ORDERED: KETOROLAC 30 MG/1 ML VIAL ONE (07:06)
[2016-03-20] MEDS ORDERED: ceFAZolin 1,000 MG VIAL ONE (07:09)
[2016-03-20] MEDS ORDERED: LACTATED RINGERS 1,000 ML IV SCH ×2 (07:30→08:00)
--- NOTE | 2016-03-20 08:22 | Operative Note ---
Date of procedure: 03/20/16 Pre-op diagnosis: acute cholecystitis with choledocholithiasis Post-op diagnosis: same Procedure: Preoperative diagnosis Acute cholecystitis with choledocholithiasis Postoperative diagnosis Same Procedures performed Laparoscopic cholecystectomy Findings The gallbladder was decompressed but there was evidence of chronic inflammation. The critical view of safety was obtained prior to placing clips on the cystic duct. There was no dominant cystic artery. There are multiple small branches off the right hepatic artery that were cauterized going to the gallbladder but no clips were required. Complications None apparent Specimen Gallbladder Anesthesia GETA Blood loss 10 mL Indications Cholecystitis with choledocholithiasis status post ERCP with sphincterotomy Description of procedure The patient was taken to the operating room and transferred to the operating table in supine position. Pressure points were padded and SCDs placed to lower extremities. General endotracheal anesthesia was administered. The abdomen was prepped with chlorhexidine and draped sterilely. Preoperative antibiotics were administered, and a timeout was performed. The abdomen was entered in a supraumbilical location of the Veress needle. A 5 mm skin incision was made with an 11 blade scalpel and a towel clip was used to grasp the abdominal wall skin at the umbilical stalk. A Veress needle was used to enter the peritoneal cavity confirmed by double click technique. Aspiration was negative. Saline drop test confirmed intraperitoneal location. The abdomen was insufflated to 15 mmHg with an initial pressure of 4 mmHg. The Veress needle was removed and a 5 mm trocar was placed blindly. Diagnostic laparoscopy revealed no evidence of Veress needle or trocar injury. The patient was placed in reverse Trendelenburg and left side rolled up position. Under direct visualization, and after local anesthetic was administered, 2 additional right subcostal 5 mm trochars were placed in an 11 mm midepigastric trocar was placed. The gallbladder was grasped at the fundus and infundibulum. There were some adhesions between the omentum and the gallbladder were taken down with blunt dissection. The cystic plate peritoneum was dissected until the critical view of safety was obtained. The cystic duct was clipped twice centrally and once laterally and divided laparoscopically with scissors between clips. There is no dominant cystic artery present. There are multiple branches coming off the right hepatic artery that were small in size and were controlled with cautery. The gallbladder was removed from the gallbladder fossa using the hook electrocautery. The gallbladder was placed in a retrieval bag and removed through the midepigastric trocar. There is no bleeding from the liver bed on reinspection and the abdomen was locally irrigated. The CO2 was released from the abdomen and the trochars were removed. The skin incisions were closed with 4-0 Monocryl and sterile skin glue. The patient was awakened from anesthesia and transferred to recovery. Postoperative plan Discharge home Follow up in 2 weeks Anesthesia: KURTIS, local Surgeon / Physician: Curry Summers Estimated blood loss: minimal Specimens: other (gallbladder) Condition: stable Disposition: PACU Results - Labs CBC & BMP: 03/17/16 06:12 03/17/16 06:12 Discharge Plan - Discharge Data Disposition: Disch To Home/Self Care Condition at Discharge: Stable Discharge Diet: advance to your usual diet Activity: no lifting Hygiene: may shower Weight Bearing at Discharge: weight bear as tolerated Driving: not until seen by doctor Contact your physician if you experience:: fever over 101, Difficulty voiding, Redness or swelling, Nausea/Vomiting, Shortness of breath, Bleeding, pain uncontrolled by pain medications Wound / Dressing Care Instructions: It is okay to shower but do not submerge incisions under water. - Discharge Medications New HYDROcodone/ACETAMIN 7.5-325 [[place] 7.5-325] 1 tablet PO Q4H PRN #45 tablet PRN Reason: Abdominal Pain - Follow Up or Referral Follow Up: Curry Summers MD [Physician] - 2 Weeks - Forms/Instructions
[2016-03-20] MEDS ORDERED: DESFLURANE 1 UNIT/15 MINUTE INH ONE (08:34)
[2016-03-20] MEDS ORDERED: MIDAZOLAM 2 MG/2 ML VIAL ONE (08:34)
[2016-03-20] MEDS ORDERED: fentaNYL 100 MCG/2 ML VIAL ONE (08:35)
[2016-03-20] MEDS ORDERED: ACETAMINOPHEN 1,000 MG/100 ML VIAL IV ONE (08:35)
[2016-03-20] MEDS: HYDROmorphone 2 MG/1 ML VIAL IV PRN ×2 (08:40→08:55)
[2016-03-20] MEDS ORDERED: HYDROmorphone 2 MG/1 ML VIAL ONE (08:48)
[2016-03-20] MEDS: ONDANSETRON 4 MG/2 ML VIAL IV PRN (08:56)
[2016-03-20 09:35] LABS: Albumin 3.1 G/DL (3.4-5.0); Bilirubin,Direct 0.1 MG/DL (0.0-0.20); Bilirubin,Indirect 0.7 MG/DL (0.0-1.0); Bilirubin,Total 0.8 MG/DL (0.2-1.0); Total Protein 6.4 G/DL (6.4-8.3)
[2016-03-20] MEDS: AMPICILLIN 500 MG CAPSULE PO SCH ×4 (10:02→20:24)
[2016-03-20] MEDS ORDERED: PROMETHAZINE 25 MG/1 ML VIAL IM ONE (11:36)
[2016-03-20] MEDS: MORPHINE 2 MG/1 ML SYRINGE IV PRN ×2 (11:51→20:24)
--- NOTE | 2016-03-20 12:52 | Sleep Medicine Progress Note ---
Assessment and Plan (1) Unspecified sleep apnea Status: Acute Assessment and plan: Given that she denies any significant sleep issues and this history is supported by her , I don't think we need to proceed with further sleep evaluation. Her headache, the main symptom that led to this evaluation, ( though concern for sleep apnea was certainly supported by physical findings and upper airway abnormalities) was alleviated by treatment of a post epidural headache. If her symptoms recur or get worse and the patient desires sleep evaluation, we will be happy to see her. Thank you for this consult. Current Visit: Yes Sleep Medicine Subjective Interval history: Patient is status post surgery with cholecystectomy. She states that a blood patch that she had place for her headache after spinal for her delivery one month ago has been effective in alleviating her headache. She still has some fullness when she comes supine. She still has nausea but no abdominal pain. Her is with her. Both again, state that she sleeps well on a regular basis. CT of her brain was done over the weekend and did not show any acute abnormalities. Laboratory evaluation did reveal evidence of mild hypothyroidism. Exam (Progress Note) - Constitutional Vitals: Period Temp Pulse Resp BP Sys/Cole Pulse Ox Last 24 Hr 97 F-98.2 F 62-107 16-20 83-140/52-87 95-99 Results - Labs CBC & BMP: 03/17/16 06:12 03/17/16 06:12 Specialty Discharge - Follow Up or Referrals Follow up with: Curry Summers MD [Physician] - 04/05/16 1:30 pm - Discharge Medications New HYDROcodone/ACETAMIN 7.5-325 [[place] 7.5-325] 1 tablet PO Q4H PRN #45 tablet PRN Reason: Abdominal Pain
--- NOTE | 2016-03-20 13:10 | Event Note ---
called by anesthesiologist that did blood patch for pts 1month long headache. this was done on sat. blood patch did take care of headache but now pt states that when she lays flat on her back, she gets pressure in her head that increases and leads to blurred vision. it clears when she sits back up. discussed w anesthesiologist and dr alvarado. will cancel pts dc and get dr ferguson from neurology to evaluate pt.
--- NOTE | 2016-03-20 13:23 | Gastrointestinal Progress Note ---
<Jose JuanShawanda Claire - Last Filed: 03/20/16 13:20> Assessment and Plan (1) Transaminitis Status: Acute Assessment and plan: 03/20-LFTs trending down. Post lap stella today. Plan and addendum to follow by Dr Lopez. 03/16-Findings of elevated LFTs that were essentially stable two days prior with continued RUQ pain and N/V following ingestion of meals. Normal , 4 weeks with no prior history. Obtain abd US with portal vein dopplers , MARCELA. Plan for ERCP tomorrow due to findings of gallstones on US. Plan and addendum to follow by DR Lopez. Current Visit: Yes (2) Right upper quadrant abdominal pain Status: Acute Assessment and plan: 03/16-Onset of RUQ with N/V, initially starting during and worsening over last several weeks since delivery. Findings on US of gallstones, normal CBD two days ago in ER. LFTs now elevated and repeat US ordered with portal vein dopplers. Plan for ERCP tomorrow to further evaluate. Plan and addendum to follow by DR lopez. Current Visit: Yes Gastroenterology - PN: Subj Interval history: CC: Elevated LFT Pt is awake, alert following lap stella this morning. She is doing well post operatively with minimal post operative pain at present. She is eating a regular diet and seems to be tolerating this well. Her LFTs are continuing to trend down. Abdomen is soft, tender to palpation. ROS: Denies SOB or chest pain Exam (Progress Note) - Constitutional Vitals: Period Temp Pulse Resp BP Sys/Cole Pulse Ox Last 24 Hr 97 F-98.2 F 62-107 16-20 83-140/52-87 95-99 General appearance: normal weight, no acute distress - Head Head exam: Present: normal inspection, normocephalic - Eye Eye exam: Present: other (lids and conjunctiva unremarkable). Absent: scleral icterus - ENT ENT exam: Present: normal exam, normal oropharynx - Neck Neck exam: Present: normal inspection - Respiratory Respiratory exam: Present: clear to auscultation bilaterally. Absent: rales, rhonchi, wheezes - Cardiovascular Cardiovascular exam: Present: regular rate and rhythm. Absent: diastolic murmur , JVD, systolic murmur - GI/Abdominal GI/Abdominal exam: Present: normal bowel sounds, tenderness, soft. Absent: ascites, distended, mass, organomegaly - Extremities Exam Extremities exam: Present: normal inspection, full ROM - Back Exam Back exam: Present: normal inspection - Neurological Exam Neurological exam: Present: alert, oriented X3 - Psychiatric Psychiatric exam: Present: normal affect, normal mood - Skin Skin exam: Present: normal color, warm, dry Results - Labs CBC & BMP: 03/17/16 06:12 03/17/16 06:12 Lab Results: I have reviewed the past 24 hour labs Specialty Discharge - Follow Up or Referrals Follow up with: Curry Summers MD [Physician] - 04/05/16 1:30 pm - Discharge Medications New HYDROcodone/ACETAMIN 7.5-325 [[place] 7.5-325] 1 tablet PO Q4H PRN #45 tablet PRN Reason: Abdominal Pain <Jose Lopez L - Last Filed: 03/20/16 17:43> Exam (Progress Note) - Constitutional Vitals: Period Temp Pulse Resp BP Sys/Cole Pulse Ox Last 24 Hr 96.8 F-98.2 F 62-107 16-20 83-140/52-87 95-99 Results - Labs CBC & BMP: 03/17/16 06:12 03/17/16 06:12
--- NOTE | 2016-03-20 15:20 | Neurology Consult Note ---
History of Present Illness History of present illness: 20 years old right-handed white lady who is a status post cholecystectomy this morning. Patient reported she had a baby delivered almost a month ago and ever since she has been having headaches. It was thought that it could be spinal headache and she underwent a blood patch this past Sunday. Headaches have resolved for good bit however now when she is laying in bed she gets some pressure type feeling in the head and when she gets up it tends to go away. She also has history of migraines. Off note her urine is positive for cannabinoids as well as opiates. 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, borderline issues.) Endocrine: History of: Thyroid Disorder Gastrointestinal: History of: GI Problems (gallstones) Reproductive: History of: Complication (1 miscarriage, hypothyroidism during ) - Surgical History Neurologic Surgeries: Patient denies: Neurologic Surgery HEENT Surgeries: Surgical HX of: Tonsilectomy & Adenoidectomy Abdominal Surgeries: Patient denies: Abdominal Surgery Reproductive Surgeries: Patient denies;: Genitourinary Surgery, Gynecologic Surgery - Family History Family History: Reports;: Family Cancer (maternal great grandparents), Family Diabetes, Family Hypertension (father, maternal grandfather and maternal aunt), Family Psychiatric Problems (brother-ADD, ADHD, seizures, maternal aunt with issues), Family Stroke (both maternal great grandparents) Denies;: Family Anesthesia Reaction, Family Heart Disease, Family Hematology , Additional Family History - Social History Smoking Status: Never smoker Frequency of Alcohol Use: None Type of Drug Use: None Exam - Constitutional Vitals: Period Temp Pulse Resp BP Sys/Cole Pulse Ox Last 24 Hr 97 F-98.2 F 62-107 16-20 83-140/52-87 95-99 Exam: GENERAL: Patient is in no acute distress. NECK: Neck is supple. There is no JVD. No carotid bruits present. No thyroid masses. CVS: First and second heart sounds are normal. There is no S3 present. Regular rate and rhythm. RESPIRATORY: Lungs are clear to auscultation without any rales or rhonchi. ABDOMEN: Soft and non-tender. Bowel sounds are present. There is no hepatosplenomegaly. EXT: There is no palpable edema. Peripheral pulses are present. Skin: No rashes Central Nervous system: General: Alert, awake and Oriented x 3 Speech: Fluent Comprehension: Intact and normal Facial expressions: Normal Cranial Nerves: CN1/Olfactory: Normal CN II/ Optic: Normal, Visual Holman unreliable CN III, and : RONEN & EOMI CN V: Normal & intact CN VII: face is symmetric CNVIII: Normal CN XI/X/XI/XII: Intact and Normal Motor: Bulk and Tone is normal. Strength in the right 5/5 Strength in the left 5/5 Sensory: Grossly intact for all the modalities of PP, LT and temp sense Reflexes: 1+ and symmetrical Cerebellar function: Normal finger to nose and heel to weinstein testing. Gait: Not tested this time Results - Labs CBC & BMP: 03/17/16 06:12 03/17/16 06:12 Assessment and Plan (1) Chronic migraine Status: Acute Assessment and plan: We'll hold off to any intervention at this time and watch her for another 24 hours. If she does not get better than restart her on some preventative treatment. I' m trying to hold off to any medication at this time due to her recent surgery. Thank you for the consult Current Visit: Yes Specialty Discharge - Follow Up or Referrals Follow up with: Curry Summers MD [Physician] - 04/05/16 1:30 pm - Discharge Medications New HYDROcodone/ACETAMIN 7.5-325 [[place] 7.5-325] 1 tablet PO Q4H PRN #45 tablet PRN Reason: Abdominal Pain
--- NOTE | 2016-03-21 07:21 | Event Note ---
General Surgery Progress Note Chief complaint This patient is a 20-year-old female who is admitted with cholecystitis and choledocholithiasis treated with ERCP and sphincterotomy followed by laparoscopic cholecystectomy on 03/20/2016 Interval history The patient developed some pressure symptoms and her head with loss of vision and a neurology consult was obtained yesterday. Her discharge was held. The neurology team is observing her for now. Her symptoms have persisted overnight. They have not worsened at all. Physical exam Afebrile, low-grade tachycardia but otherwise normal vital signs Abdominal exam is normal with expected postoperative tenderness and clean incisions Assessment and plan Discharge home when cleared by neurology
[2016-03-21] MEDS: AMPICILLIN 500 MG CAPSULE PO SCH ×2 (11:14→12:19)
--- NOTE | 2016-03-21 11:17 | Pathology Report from [facility] ---
ACCESSION # : [id number] PATIENT NAME : Barbara Mcneal ORDERING DR : Curry Summers MD CLINICAL HX: Cholecystitis POST-OP DX: Same SPECIMEN INFO: Gallbladder GROSS DESCRIPTION: The specimen is received in formalin labeled with the patient 's name and consists of an focally opened gallbladder measuring 9.6 x 2.5 cm. The serosa is erythematous, smooth, [place]. The wall averages 0.2 cm in thickness. The mucosa is pink-[place], slightly hyperemic with some white streaking present. The lumen contains viscous hyperemic bile admixed with multiple polypoid yellow-green stones that collectively measuring 2.0 x 2.2 cm. The largest stone measures up to 0.5 cm. Noted within the area of the cystic duct is a polypoid 0.4 cm green-covington stone. [employer] Salesperson sections submitted in one cassette. DIAGNOSIS FOR BARBARA MCNEAL: GALLBLADDER, CHOLECYSTECTOMY: Acute and chronic cholecystitis; cholelithiasis. SERVICE DATE: 03/20/2016 REPORT DATE: 03/21/2016 PATHOLOGIST: Evan De Leon
[2016-03-21 13:29] VITALS: BP 121/72
--- NOTE | 2016-03-21 14:59 | Neurology Progress Note ---
Neurology - PN : Subjective Interval history: Patient seems to be doing better. Pressure type headache are better. Slept well last night. No other problems reported. Vision is fine. Exam (Progress Note) - Constitutional Vitals: Period Temp Pulse Resp BP Sys/Cole Pulse Ox Last 24 Hr 96.0 F-97.8 F 68-104 18-20 119-152/56-86 95-98 Exam: GENERAL: Patient is in no acute distress. NECK: Neck is supple. There is no JVD. No carotid bruits present. No thyroid masses. CVS: First and second heart sounds are normal. There is no S3 present. Regular rate and rhythm. RESPIRATORY: Lungs are clear to auscultation without any rales or rhonchi. ABDOMEN: Soft and non-tender. Bowel sounds are present. There is no hepatosplenomegaly. EXT: There is no palpable edema. Peripheral pulses are present. Skin: No rashes Central Nervous system: General: Alert, awake and Oriented x 3 Speech: Fluent Comprehension: Intact and normal Facial expressions: Normal Cranial Nerves: CN1/Olfactory: Normal CN II/ Optic: Normal, Visual Holman unreliable CN III, and : RONEN & EOMI CN V: Normal & intact CN VII: face is symmetric CNVIII: Normal CN XI/X/XI/XII: Intact and Normal Motor: Bulk and Tone is normal. Strength in the right 5/5 Strength in the left 5/5 Sensory: Grossly intact for all the modalities of PP, LT and temp sense Reflexes: 1+ and symmetrical Cerebellar function: Normal finger to nose and heel to weinstein testing. Gait: Able to get up and walk without assistance. Results - Labs CBC & BMP: 03/17/16 06:12 03/17/16 06:12 Assessment and Plan (1) Chronic migraine Status: Acute Assessment and plan: Patient is doing fairly well. Will give her some time for her intracerebral pressure to adjust. Status post blood patch. Okay to go home from neuro standpoint. If symptoms persist that she is advised to call my office to schedule follow-up. Signoff please call when necessary Current Visit: Yes Specialty Discharge - Follow Up or Referrals Follow up with: Curry Summers MD [Physician] - 04/05/16 1:30 pm - Discharge Medications New HYDROcodone/ACETAMIN 7.5-325 [[place] 7.5-325] 1 tablet PO Q4H PRN #45 tablet PRN Reason: Abdominal Pain
--- NOTE | 2016-03-22 06:49 | Discharge Summary ---
Hospital Course - Hospital Course Hospital Course: Patient was admitted with cholecystitis and choledocholithiasis.She underwent ERCP and stone removal. She was having severe headaches after epidural for recent vaginal delivery so the anesthesiologist and a blood patch which seemed to help some. She is taken to the operating room for laparoscopic cholecystectomy which she developed pressure in her head with vision changes so neurology consult was obtained postop. They felt that this was migraine related and signed off and said she was safe to be discharged home. They did not leave a note told this to the nursing staff. She was discharged home with pain medications and follow-up with me in 2 weeks. Diagnosis - Discharge Diagnosis (1) Right upper quadrant abdominal pain Status: Acute Specialty Discharge - Follow Up or Referrals Follow up with: Franklin Bowden MD [Physician] - Curry Summers MD [Physician] - 04/05/16 1:30 pm - Discharge Medications New HYDROcodone/ACETAMIN 7.5-325 [[place] 7.5-325] 1 tablet PO Q4H PRN #45 tablet PRN Reason: Abdominal Pain Discharge Plan - Discharge Data Disposition: Disch To Home/Self Care Condition at Discharge: Stable Discharge Diet: advance to your usual diet Activity: no lifting Hygiene: may shower Weight Bearing at Discharge: full weight bearing Driving: not until seen by doctor Contact your physician if you experience:: fever over 101, Difficulty voiding, Redness or swelling, Nausea/Vomiting, Shortness of breath, Bleeding, pain uncontrolled by pain medications - Discharge Medications New HYDROcodone/ACETAMIN 7.5-325 [[place] 7.5-325] 1 tablet PO Q4H PRN #45 tablet PRN Reason: Abdominal Pain - Follow Up or Referral Follow Up: Franklin Bowden MD [Physician] - Curry Summers MD [Physician] - 04/05/16 1:30 pm - Forms/Instructions Exam - Constitutional Vitals: Period Temp Pulse Resp BP Sys/Cole Pulse Ox Last 24 Hr 96.0 F-97.8 F 95-104 18-20 119-121/56-72 95-96 General appearance: no acute distress, morbidly obese - Head Head exam: Present: normal inspection, normocephalic - Eye Eye exam: Present: EOMI Pupils: Present: RONEN - ENT ENT exam: Present: normal exam - Neck Neck exam: Present: normal inspection - Respiratory Respiratory exam: Present: clear to auscultation bilaterally. Absent: accessory muscle use, chest wall tenderness - Cardiovascular Cardiovascular exam: Present: regular rate and rhythm. Absent: systolic murmur , tachycardia - GI/Abdominal GI/Abdominal exam: Present: soft, other (incisions clean/dry/intact). Absent: tenderness, rebound - Extremities Exam Extremities exam: Present: normal inspection, normal capillary refill - Back Exam Back exam: Present: normal inspection - Neurological Exam Neurological exam: Present: alert, oriented X3 - Psychiatric Psychiatric exam: Present: normal affect, normal mood - Skin Skin exam: Present: normal color, warm DS: Provider Date of admission: 03/17/16 10:54 Primary care physician: . No PCP Attending physician on admission: Char Zapata MD Consults: 03/17/16 11:46 Consult to Anesthesiology [CONS] Routine Consulting Provider: Reason for Anesthesiology: Epidural Blood Patch Consult Comment: per Dr. Zapata 03/20/16 13:03 Consult to Physician [CONS] Routine Comment: sp blood patch w head pressure and blurred vision Consulting Provider: Franklin Bowden Consulting Provider Notified: Yes When should Consulting Provider be notified: Now Consult to Specialist Group: Neurology When should Consulting Provider be notified: Now Person Notified: MARITZA Date Notified: 03/20/16 Time Notified: 15:56 Discharging clinician: Curry Summers MD Expected date of discharge: 03/21/16
--- NOTE | 2016-03-22 15:42 | Physician Query Form ---
CLICK EDIT DOCUMENT TO SELECT QUERY ANSWER --> OK --> SIGN Sharla Adame RN Clinical Boarding Specialist W) [phone] (f) [phone] [email or web address] PROVIDERS: Make your selection(s) from the choices in EACH section by typing an "x" and enter comments in the comment section. Please use your independent medical judgment in providing your response. This request does not imply that any particular answer is desired or expected. CLINICAL INDICATORS: (Providers should not edit this section) The below diagnosis was documented in the record, but is not consistently noted in subsequent documentation. Diagnosis: UTI Based on documentation of "acute UTI" in ER record, UA showed trace leukocytes. Pt treated with IV Levaquin. Please clarify the following: ( ) The above diagnosis was monitored, evaluated, and/or treated and is a confirmed diagnosis ( ) The above diagnosis was ruled out (x ) The above diagnosis is still a likely, suspected, probable diagnosis ( ) Other, please specify: ( ) Clinically unable to determine COMMENTS: Use of terms such as suspected, likely, or probable (associated with a specific diagnosis that is being evaluated, monitored, or treated as if it exists) are acceptable and can be restated in the discharge summary if not ruled out. [facility]
== END 2016-03-21 15:48 | disposition home or self-care (01) | DRG 263 ==
LOC: N.ED 04:54 → N.EDINP 04:54 → N.4E 12:19 → SUATTDRO 03-17 10:54
PROVIDERS: ADMIT Internal Medicine; ATTEND Surgery
PROC: ERCPWSP (ICD-10-PCS; 2016-03-17 09:05)
PROC: LAPCHOL (2016-03-20 08:50)